=== PATIENT | female | born 1975 | race Caucasian/White ===

== ENCOUNTER 2022-03-09 07:27 | Emergency (ER) | payer OTHER, SELFPAY ==
[2022-03-09 07:34] VITALS: BP 162/100; PULSE 91; RESP 18; TEMP 36.9; O2SAT 100
--- NOTE | 2022-03-09 08:07 | ED.GENADUL_ITS ---
Discharge Plan Disposition Patient Disposition: HOME Condition: Stable Discharge Details Clinical Impression: Distal radius fracture, left Primary Care Provider: [facility],Local ED Provider: Garrison Roman Home Meds and New Rx's Prescriptions: Continued drospirenone-ethinyl estradiol [Ocella] 1 EACH tablet 1 ea PO DAILY amoxicillin 500 MG capsule 500 mg PO TID Qty: 30 0RF antipyrine-benzocaine 10 ML drops 4 drp Otic QID Qty: 1 0RF citalopram 20 mg tablet 20 mg PO DAILY Label Comments: TAKE ONE TABLET BY MOUTH DAILY. hydroxychloroquine 200 mg tablet 200 mg PO DAILY Label Comments: TAKE 1 TABLET BY MOUTH TWICE A DAY bupropion HCl 300 mg tablet extended release 24 hr 300 mg PO DAILY Label Comments: TAKE ONE TABLET BY MOUTH EVERY MORNING. Discharge Instructions Instructions: Wrist Fracture in Adults (ED) Additional Instructions: [id number] Tylenol and/or Motrin as directed for discomfort. Rest, elevate, cool compresses every 2 hours for 20 minutes. Wear splint, do not remove until reevaluated by orthopedics when you return home to [place] next week. I would contact your provider at home tomorrow to discuss your ER visit in order to set up your appointment. Please watch for new or worsening symptoms and return to the ER for any concerns Medical Decision Making 46-year-old female who is right-hand dominant presents to the ER for a left wrist injury that she sustained after a mechanical fall 2 days ago. Denies any other injury, numbness, tingling, weakness. Has been using [id number] medication with mild relief. Patient declines any additional analgesia now. We will remove the 2 rings from her ring finger on her left hand as well as obtain an x-ray of her left wrist. We were able to remove 1 ring using petroleum jelly; however, unfortunately we needed to use the ring cutter for the second ring. Patient tolerated this without difficulty. The wrist was splinted appropriately, patient tolerated well. Neuro, vascular, tendon intact as examined status post splint application by me. X-ray tech was able to set the patient up with an email copy of the x-ray. Patient is here visiting from [place] and returns next week, will follow up with orthopedics then. Patient declines any prescription for analgesia and will continue [id number] Tylenol and Motrin. Blood pressure noted to be elevated but admits to discomfort and anxiety. Denies chest pain or headache. Will follow blood pressure with her PCP. Standard discharge and return precautions were provided. Patient understands, is agreeable to this plan, and has no additional questions or concerns upon discharge. This documentation was generated using [employer] system, please disregard any oddities of phrase or misspellings. Medical Records Medical records reviewed: Yes I reviewed the patient's medical records. Imaging Data Radiologic Study: Attestation: I personally reviewed and interpreted this imaging study as follows: Imaging: X-Ray Radiologist's impression: PROCEDURE INFORMATION: Exam: XR Left Wrist Exam date and time: 03/09/2022 8:18 AM Age: 46 years old Clinical indication: Injury or trauma; Fall; Blunt trauma (contusions or hematomas); Wrist; Left; Injury date: 03/07/22 TECHNIQUE: Imaging protocol: Radiologic exam of the Left wrist. Views: 3 or more views. COMPARISON: No relevant prior studies available. FINDINGS: Bones/joints: Acute slightly im pacted nondisplaced fracture of distal radial metaphysis. No dislocation. Joint spaces are preserved. Soft tissues: Soft tissue swelling about the wrist. IMPRESSION: Acute slightly impacted nondisplaced fracture of distal radial metaphysis. HPI General Mode of arrival: ambulatory . Date/Time Provider Initiated Documentation: 03/09/22 08:00 . Limitations to Documentation: no limitations . Information obtained by: patient and family . History of Present Illness 46 year old F presents to the emergency department with the chief complaint of L wrist pain, described as moderate, with intensity rated at 4. Quality is described as aching, and is localized to the left and upper extremity. Patient reports no radiation. Patient started experiencing this day(s) (2) and it has been constant. Immobilization improves symptom(s), Movement worsens symptoms . Patient notes no other symptoms.. Patient did receive the following treatments prior to arrival, NSAID Related Data Home Medications Medication Instructions Recorded Confirmed amoxicillin 500 mg capsule 500 mg PO TID ##30 08/23/14 antipyrine-benzocaine 5.4 %-1.4 % 4 drp otic (ear) QID ##1 08/23/14 ear drops drospirenone 3 mg-ethinyl 1 ea PO DAILY 08/23/14 08/23/14 estradiol 0.03 mg tablet (Ocella) bupropion HCl 300 mg 24 hr tablet, 300 mg PO DAILY 03/09/22 03/09/22 extended release citalopram 20 mg tablet 20 mg PO DAILY 03/09/22 03/09/22 hydroxychloroquine 200 mg tablet 200 mg PO DAILY 03/09/22 03/09/22 Previous Rx's Medication Instructions Recorded amoxicillin 500 mg capsule 500 mg PO TID ##30 08/23/14 antipyrine-benzocaine 5.4 %-1.4 % 4 drp otic (ear) QID ##1 08/23/14 ear drops Allergies Allergy/AdvReac Type Severity Reaction Status Date / Time No Known Allergies Allergy Unverified 03/09/22 07:37 General Stated Complaint: Orthopedic QUIANA: 3 Review of Systems Constitutional Constitutional: Denies weakness Musculoskeletal Musculoskeletal: Reports arthralgias, Denies numbness, Reports stiffness and Denies tingling Integumentary/Breasts Skin/Breast: Denies erythema Neurologic Neurologic: Denies numbness, Denies tingling and Denies weakness PFSH All Active Problems (Updated 03/09/22 @ 09:48 by DOMONIQUE Chaidez) Distal radius fracture, left (Acute) Social History Smoking/Tobacco Use Status: Former Tobacco Use Smoking risk assessment performed?: Yes Alcohol Intake: current Alcohol Intake frequency: 0-2 drinks per day Drug use: Never Substance use type: does not use Do you feel safe at home: Yes Do you feel safe in your relationship?: Yes Exam Const General: cooperative, healthy appearing, comfortable and no acute distress Orientation: alert and awake [facility] Head: normal to inspection, normocephalic and atraumatic Eyes Conjunctivae: conjunctivae normal Neck Neck: normal visual inspection, trachea midline and supple Resp Effort & Inspection: normal respiratory effort and able to speak in complete sentences Cardio Rate: regular rate Rhythm: regular rhythm Skin General skin exam: no rashes or lesions noted Neuro General: patient alert, patient awake, moves all extremities and no focal motor deficits Cognition: normal cognition Speech: speech normal Gait: normal gait Motor: muscle tone normal throughout Sensory Exam: no sensory deficits noted Extrem General: full ROM and capillary refill normal Other: Left wrist with diffuse mild swelling and tenderness worse along the radial aspect. Skin is intact. Limited range of motion secondary to discomfort. Neuro, vascular, tendon intact. Normal radial pulse and capillary refill. Psych Appearance: grossly normal Mental Status: mental status grossly normal Course Vital Signs Vital signs: Vital Signs Temperature 36.9 C 03/09/22 07:34 Pulse 91 H 03/09/22 07:34 Respiratory Rate 18 03/09/22 07:34 Blood Pressure 162/100 H 03/09/22 07:34 Pulse Oximetry 100 03/09/22 07:34 Temperature 36.9 C 03/09/22 07:34 Temperature Source Temporal Artery Scan 03/09/22 07:34 Pulse 91 H 03/09/22 07:34 Respiratory Rate 18 03/09/22 07:34 Respiratory Effort Non-Labored 03/09/22 07:40 Blood Pressure 162/100 H 03/09/22 07:34 Blood Pressure Position Sitting 03/09/22 07:34 Pulse Oximetry 100 03/09/22 07:34 Oxygen Delivery Method Room Air 03/09/22 07:34 Oxygen Flow Rate 0 03/09/22 07:34 Procedures Orthopedic Splinting/Casting Injury #1: Side: left Upper Extremity Injury Location: wrist Upper Extremity Immobilizer: wrist splint Additional Comments: Patient tolerated well. Neuro, vascular, tendon intact status post splint application as examined by me. PAWSS Have you Been Recently Intoxicated or Drunk Within the Last 30 days?: No Have you Ever Experienced Previous Episodes of Alcohol Withdrawal?: No Have you ever Experienced Withdrawal Seizures?: No Have you ever Experienced Delirium Tremens(DT)s?: No Have you ever undergone Alcohol Rehabilitation Treatment (i.e, inpt ot outpatient treatment programs)?: No Have you ever Experienced Blackouts?: No Have you ever Combined Alcohol with other Downers within the last 90 days?: No Have you ever Combined Alcohol with any other Substance of Abuse during the last 90 days?: No Positive Blood Alcohol level on Presentation? [PCS.BAL]: No Evidence of Increased Autonomic Activity (i.e. HR>120, tremor, sweating, agitation, nausea)?: No Result: 0
--- NOTE | 2022-03-09 08:25 | DI.RAD_ITS ---
Exam(s) XR WRIST LT COMPLETE EXAM: XR WRIST LT COMPLETE CLINICAL HISTORY: fall injury. TECHNIQUE: 2D digital imaging was performed. COMPARISON: No exams were available for comparison FINDINGS: 3 views Very subtle abnormality in distal radius which may indicate subtle mildly impacted nondisplaced fract ure. Distal ulna appears unremarkable as does the scaphoid. No significant ulnar variance. No dege nerative changes. IMPRESSION: Possible very subtle nondisplaced fracture of the distal radius. No significant ulnar variance. DATA REPOSITORY: RADIATION DOSE DELIVERED:
--- NOTE | 2022-03-09 09:36 | DI.VRAD_ITS ---
PROCEDURE INFORMATION: Exam: XR Left Wrist Exam date and time: 03/09/2022 8:18 AM Age: 46 years old Clinical indication: Injury or trauma; Fall; Blunt trauma (contusions or hematomas); Wrist; Left; Injury date: 03/07/22 TECHNIQUE: Imaging protocol: Radiologic exam of the Left wrist. Views: 3 or more views. COMPARISON: No relevant prior studies available. FINDINGS: Bones/joints: Acute slightly impacted nondisplaced fracture of distal radial metaphysis. No dislocation. Joint spaces are preserved. Soft tissues: Soft tissue swelling about the wrist. IMPRESSION: Acute slightly impacted nondisplaced fracture of distal radial metaphysis. Dictated and Authenticated by: Marcela Angel MD. Ordering:EVETTE Ji MD
[2022-03-09 10:03] VITALS: BP 144/101; PULSE 95; RESP 18; O2SAT 100
== END 2022-03-09 10:03 | disposition home or self-care (01) ==
PROVIDERS: Emergency Provider Physician Assistant
DX: S52.592A Other fractures of lower end of left radius, initial encounter for closed fracture (principal); W18.39XA Other fall on same level, initial encounter
CPT/HCPCS: 29125; 99283; 73110

== ENCOUNTER 2022-03-11 19:29 | Outpatient (REF) | payer OTHER, SELFPAY ==
[2022-03-11 13:23] LABS: Clarity Clear (Clear); pH 6.5 (5-8)
[2022-03-11 13:47] LABS: Bilirubin Color Interference (Negative); Blood Color Interference (Negative); Glucose Color Interference mg/dL (Negative); Ketones Color Interference mg/dL (Negative); Leukocyte Esterase Color Interference (Negative); Nitrite Color Interference (Negative); Specific Gravity 1.005 (1.005-1.025); Urobilinogen Color Interference EU/dL (Up TO 0.2)
[2022-03-11 13:49] LABS: WBC >50 HPF (0-5)
[2022-03-11 13:50] LABS: C & S Indicated? Yes
== END 2022-03-11 19:30 | disposition home or self-care (01) ==
LOC: LBN 19:29
PROVIDERS: Visit Provider Nurse Practitioner Family
DX: R39.89 Other symptoms and signs involving the genitourinary system (principal)
CPT/HCPCS: 87077; 81003; 81015; 87086; 87186